=== PATIENT | male | born 1950 | race Caucasian/White ===

== ENCOUNTER → 2016-07-14 | Outpatient (CLI) | payer BC | LOC: KOH-I 11:54 | DX: M54.2 Cervicalgia (principal); M25.511 Pain in right shoulder; M25.531 Pain in right wrist; M47.812 Spondylosis without myelopathy or radiculopathy, cervical region; S22.31XD Fracture of one rib, right side, subsequent encounter for fracture with routine healing | CPT/HCPCS: 72050; 73030; 73110 ==

== ENCOUNTER → 2020-06-24 | Outpatient (CLI) | payer BC | LOC: KOH-I 08:46 | DX: M25.519 Pain in unspecified shoulder (principal); M19.012 Primary osteoarthritis, left shoulder | CPT/HCPCS: 73030 ==

== ENCOUNTER → 2021-05-21 | Outpatient (CLI) | payer BC | LOC: KOH-I 13:51 | DX: Z01.811 Encounter for preprocedural respiratory examination (principal); R07.9 Chest pain, unspecified | CPT/HCPCS: 71046 ==